=== PATIENT | female | born 1950 | race Caucasian/White ===

== ENCOUNTER 2017-04-11 15:35 | Emergency (ER) | payer MEDICARE, MEDICAID ==
[~2017-04-11] VITALS: Ht 172.7 cm; Wt 73.9 kg
[2017-04-11 15:43] VITALS: BP 151/73
== END 2017-04-11 17:25 | disposition home or self-care (01) ==
LOC: ER 15:38
DX: S63.286A Dislocation of proximal interphalangeal joint of right little finger, initial encounter (principal); W18.39XA Other fall on same level, initial encounter; Y93.89 Activity, other specified; Y92.89 Other specified places as the place of occurrence of the external cause; Y99.8 Other external cause status
CPT/HCPCS: 26770; 73140 ×2; 99284; A4606; J3490; Z7610

== ENCOUNTER 2018-10-04 19:41 | Emergency (ER) | payer MEDICARE, MEDICAID ==
[~2018-10-04] VITALS: Ht 172.7 cm; Wt 73.9 kg
[2018-10-04 19:48] VITALS: BP 118/84
== END 2018-10-04 21:28 | disposition home or self-care (01) ==
LOC: ER 19:49
DX: S82.64XA Nondisplaced fracture of lateral malleolus of right fibula, initial encounter for closed fracture (principal); S90.01XA Contusion of right ankle, initial encounter; Z87.442 Personal history of urinary calculi; W10.8XXA Fall (on) (from) other stairs and steps, initial encounter; Y93.89 Activity, other specified; Y92.89 Other specified places as the place of occurrence of the external cause; Y99.8 Other external cause status
CPT/HCPCS: 73610-TC; 73630-TC

== ENCOUNTER 2022-07-21 15:43 | Emergency (ER) | payer MEDICARE, OTHER ==
[~2022-07-21] VITALS: Ht 172.7 cm; Wt 69.4 kg
[2022-07-21 15:59] VITALS: BP 140/78
--- NOTE | 2022-07-21 17:20 | NUR ---
SEEN AND EVALUATED BY Vadim ADAMS/Vivi IN STABLE CONDITION.
== END 2022-07-21 17:20 | disposition home or self-care (01) ==
LOC: ER 15:48
DX: S62.395A Other fracture of fourth metacarpal bone, left hand, initial encounter for closed fracture (principal); Z87.442 Personal history of urinary calculi; W19.XXXA Unspecified fall, initial encounter; Y93.89 Activity, other specified; Y92.89 Other specified places as the place of occurrence of the external cause; Y99.8 Other external cause status
CPT/HCPCS: 73140-TC